=== PATIENT | female | born 1955 | race Caucasian/White ===

== ENCOUNTER → 2024-07-22 | Outpatient (CLI) | payer MEDICARE, OTHER | END | disposition home or self-care (01) | LOC: ORTHO 08:15 | PROVIDERS: ATTEND Orthopaedic Surgery | DX: M17.11 Unilateral primary osteoarthritis, right knee (principal); M25.761 Osteophyte, right knee ==

== ENCOUNTER → 2025-04-08 | Day surgery (SDC) | payer MEDICARE, OTHER ==
[~2025-04-08] VITALS: Ht 167.6 cm; Wt 87.1 kg
[~2025-04-08] MED LIST: ACETAMINOPHEN 50 ML IV ONE; ALBUTEROL4 MG PO; ALLEGRA ALLERGY60 M2 PO; CITALOPRAM20 MG PO; LIPITOR20 MG PO; Lactated Ringer's Solution 0 ML IV ONE; Lactated Ringer's Solution 500 ML IV ONE; Lidocaine Hydrochloride 2% 5 ML SDV IV ONE; Lidocaine Hydrochloride 30 ML VIAL ONE; MELOXICAM15 MG PO; MULTI FOR HER1 EACH PO; OMEPRAZOLE40 MG PO; OMNIPOD DASH1 EACH SQ; PLAVIX75 M1 PO; PROPOFOL 200 MG/20 ML VIAL IV ONE; SEREVENT DISKU50 MCG INH; TOPROL XL25 MG PO; VALSARTAN320 MG PO; VAZALORE81 MG PO; VITAMIN B COMP1 EAC1 PO; VITAMIN D210 MCG PO; ceFAZolin sodium/sodium chlor 20 ML IV ONE; hydrALAZINE hydrochloride 20 MG/ML VIAL IV ONE
[2025-04-08 07:30] VITALS: BP 190/79
[2025-04-08 09:41] VITALS: BP 135/61
[2025-04-08 09:56] VITALS: BP 109/73
[2025-04-08 10:16] VITALS: BP 144/72
== END | disposition home or self-care (01) ==
LOC: SDC 04-05 09:30
PROVIDERS: ATTEND Orthopaedic Surgery
DX: G56.01 Carpal tunnel syndrome, right upper limb (principal); I10 Essential (primary) hypertension; M19.90 Unspecified osteoarthritis, unspecified site; F32.A Depression, unspecified; E78.00 Pure hypercholesterolemia, unspecified; E11.9 Type 2 diabetes mellitus without complications; K21.9 Gastro-esophageal reflux disease without esophagitis; G47.30 Sleep apnea, unspecified; Z98.890 Other specified postprocedural states; Z98.891 History of uterine scar from previous surgery; Z79.82 Long term (current) use of aspirin; Z79.899 Other long term (current) drug therapy; Z88.8 Allergy status to other drugs, medicaments and biological substances

== ENCOUNTER → 2025-06-16 | Outpatient (CLI) | payer MEDICARE, OTHER ==
[~2025-06-16] MED LIST changes: -ACETAMINOPHEN 50 ML IV ONE; -Lactated Ringer's Solution 0 ML IV ONE; -Lactated Ringer's Solution 500 ML IV ONE; -Lidocaine Hydrochloride 2% 5 ML SDV IV ONE; -Lidocaine Hydrochloride 30 ML VIAL ONE; -PROPOFOL 200 MG/20 ML VIAL IV ONE; -ceFAZolin sodium/sodium chlor 20 ML IV ONE; -hydrALAZINE hydrochloride 20 MG/ML VIAL IV ONE
== END | disposition home or self-care (01) ==
LOC: ORTHO 02:50
PROVIDERS: ATTEND Orthopaedic Surgery
DX: M19.031 Primary osteoarthritis, right wrist (principal); M25.531 Pain in right wrist